=== PATIENT | female | born 1985 | race Caucasian/White ===

== ENCOUNTER → 2019-04-19 | Outpatient (CLI) | payer OTHER | LOC: LAB 07:53 | DX: N39.0 Urinary tract infection, site not specified (principal) ==

== ENCOUNTER 2021-11-05 23:46 | Emergency (ER) | payer OTHER ==
[~2021-11-05] VITALS: Ht 170.2 cm; Wt 68.2 kg
[2021-11-06] MEDS ORDERED: PRENATE ELITE1 TA3 PO (00:07)
[2021-11-06 01:40] LABS: URINE APPEARANCE CLEAR; URINE COLOR YELLOW
[2021-11-06 01:41] LABS: URINE BILIRUBIN NEGATIVE (NEGATIVE); URINE BLOOD 3 (NEGATIVE); URINE GLUCOSE NEGATIVE (NEGATIVE); URINE KETONE NEGATIVE (NEGATIVE); URINE LEUKOCYTE ESTERASE 2+ (NEGATIVE); URINE NITRATE NEGATIVE (NEGATIVE); URINE PROTEIN(semi-quant) TRACE (NEGATIVE); URINE UROBILINOGEN NORMAL (NORMAL)
[2021-11-06 01:42] LABS: URINE WBC 16-30 /hpf (0-3)
[2021-11-06] MEDS ORDERED: CEPHALEXIN500 M1 PO (01:50)
[2021-11-06 02:00] VITALS: BP 123/82
== END 2021-11-06 02:00 | disposition home or self-care (01) ==
LOC: ED 23:46
PROVIDERS: Nurse Practitioner
DX: N39.0 Urinary tract infection, site not specified (principal)

== ENCOUNTER → 2023-08-26 | Outpatient (CLI) | payer BC ==
[~2023-08-26] MED LIST: CEPHALEXIN500 M1 PO; PRENATE ELITE1 TA3 PO
== END ==
LOC: LAB 11:13
DX: N39.0 Urinary tract infection, site not specified (principal)